=== PATIENT | female | born 1935 | race Caucasian/White ===

== ENCOUNTER 2017-08-29 18:59 | Emergency (ER) | payer MEDICARE ==
[2017-08-29 19:24] VITALS: PULSE 70
[2017-08-29 19:54] VITALS: O2SAT 97
[2017-08-29 19:56] LABS: BASOPHIL % 0.4 % (0.0-0.4); Eosinophil % 3.1 % (0.00-5.0); Granulocytes % 55.3 % (36.0-66.0); Lymphocytes % 30.7 % (24.0-44.0); Mean Cell Volume 92.3 fl (78-100); Mean Corpuscular Hemoglobin 28.9 pg (26-32); Mean Platelet Volume 11.2 fl (6-9.5); Monocytes % 10.5 % (0.0-12.0); Platelet Count 164 K/mm3 (150-450); Red Blood Count 4.29 M/mm3 (4.1-5.4); Red Cell Distribution Width 14.8 % (11.5-14.0); White Blood Count 6.9 K/mm3 (4.0-10.5)
[2017-08-29 19:58] LABS: ADD URINE CULTURE? NO (NO); Bilirubin NEGATIVE (NEGATIVE); Blood NEGATIVE Ery/ul (0-5); COMPLETE URINE MICROSCOPIC? NO; Collection Type CLEAN CATCH; Glucose NEGATIVE (NEGATIVE); Leukocyte Esterase NEGATIVE (NEGATIVE)
[2017-08-29 20:12] LABS: ALBUMIN 3.7 g/dL (3.4-5.0); ANION GAP 12.2 MEQ/L (5-15); BILIRUBIN,TOTAL 0.6 mg/dL (0.2-1.0); Carbon Dioxide 28.5 mEq/L (21-32); Total Protein 6.7 gm/dL (6.4-8.2)
--- NOTE | 2017-08-29 20:25 | ERPHSYRPT ---
- History of Present Illness Time Seen by Provider: 08/29/17 20:23 Historian: patient Exam Limitations: no limitations Patient Subjective Stated Complaint: right side abdominal pain starting today.. states has had urinary frequency and painful urination. states difficulty breathing. her chemicals fermentation operator told her to take a lasix to help. states breathing improved after lasix. Triage Nursing Assessment: alert and oriented ambulate to room per self. no obvious SOB with exertion. denies cough. lungs clear bilateral/ slight edema noted to lower extemities which is normal for her after her valve replacement. + pedal pulses palpable. abdomen soft non tender. bowels moving with no problems. Physician History: right side abdominal pain starting today.. states has had urinary frequency and painful urination. states difficulty breathing. her chemicals fermentation operator told her to take a lasix to help. states breathing improved after lasix. no fever. pain relieved after 15 minutes in ER Timing/Duration: today Activities at Onset: none Quality: cramping Abdominal Pain Onset Location: generalized abdomen Pain Radiation: no radiation Severity of Pain-Max: mild Severity of Pain-Current: none Modifying Factors: Improves With: nothing Allergies/Adverse Reactions: alendronate sodium [From Fosamax] Allergy (Verified 08/29/17 19:59) Sulfa (Sulfonamide Antibiotics) Allergy (Verified 08/29/17 20:00) acetaminophen [From Percocet] Adverse Reaction (Verified 08/29/17 20:00) oxycodone [From Percocet] Adverse Reaction (Verified 08/29/17 20:00) Home Medications: Clonazepam [Klonopin] 0.5 mg PO BID 08/29/17 [History] Dronedarone Hydrochloride 400* [Multaq 400 MG] 400 mg PO BID 08/29/17 [ History] Furosemide 20 mg [Lasix 20 mg] 20 mg PO BID 08/29/17 [History] Levothyroxine Sodium 0.15 mcg PO DAILY 08/29/17 [History] Metoprolol Tartrate 25 mg PO TID 08/29/17 [History] Warfarin Sodium [Coumadin] 1.5 mg PO DAILY 08/29/17 [History] Immunizations Up to Date: Yes - Review of Systems Constitutional: No Fever, No Chills Eyes: No Symptoms Ears, Nose, & Throat: No Symptoms Respiratory: No Cough, No Dyspnea Cardiac: No Chest Pain, No Edema, No Syncope Abdominal/Gastrointestinal: Abdominal Pain, No Nausea, No Vomiting, No Diarrhea Genitourinary Symptoms: No Dysuria Musculoskeletal: No Back Pain, No Neck Pain Skin: No Rash Neurological: No Dizziness, No Focal Weakness, No Sensory Changes Psychological: No Symptoms Endocrine: No Symptoms All Other Systems: Reviewed and Negative - Past Medical History Pertinent Past Medical History: Yes Cardiac History: Arrhythmia Respiratory History: CHF Endocrine Medical History: Thyroid Cancer GI Medical History: Other History: Kidney Cancer Other Medical History: pancreatic cysts - Past Surgical History Past Surgical History: Yes Cardiac: Valve Replacement Genitourinary: Kidney Surgery Musculoskeletal: No Pertinent History - Social History Smoking Status: Never smoker Exposure to second hand smoke: No Drug Use: none Patient Lives Alone: No - Nursing Vital Signs Nursing Vital Signs: Initial Vital Signs Temperature 97.7 F 08/29/17 19:07 Pulse Rate 70 08/29/17 19:07 Respiratory Rate 18 08/29/17 19:07 Blood Pressure 127/92 08/29/17 19:07 O2 Sat by Pulse Oximetry 95 08/29/17 19:07 Pain Scale Pain Intensity 0 - Physical Exam General Appearance: no apparent distress, alert Eye Exam: PERRL/EOMI, eyes nml inspection Ears, Nose, Throat Exam: normal ENT inspection, pharynx normal, moist mucous membranes Neck Exam: normal inspection, non-tender, supple, full range of motion Respiratory Exam: normal breath sounds, lungs clear, No respiratory distress Cardiovascular Exam: regular rate/rhythm, normal heart sounds, murmur Gastrointestinal/Abdomen Exam: soft, No tenderness, No mass Back Exam: normal inspection, normal range of motion, No CVA tenderness, No vertebral tenderness Extremity Exam: normal inspection, normal range of motion, pelvis stable Neurologic Exam: alert, oriented x 3, cooperative, normal mood/affect, nml cerebellar function, sensation nml, No motor deficits Skin Exam: normal color, warm, dry SpO2: 97 Oxygen Delivery: Room Air - Course Nursing assessment & vital signs reviewed: Yes Ordered Tests: Active Orders 24 hr Category Date Time Status EKG-ER Only STAT Care 08/29/17 19:26 Active IV Insertion STAT Care 08/29/17 19:26 Active OBSTR/ACUTE ABDOMEN SERIES Stat Exams 08/29/17 19:26 Taken CBC W DIFF Stat Lab 08/29/17 19:51 Completed CMP Stat Lab 08/29/17 19:51 Completed Lactic Acid Stat Lab 08/29/17 19:50 Completed UA W/RFX UR CULTURE Stat Lab 08/29/17 19:51 Completed Lab/Rad Data: Laboratory Result Diagrams 08/29/17 19:51 08/29/17 19:51 Laboratory Results 08/29/17 08/29/17 08/29/17 Range/Units 19:51 19:51 19:51 WBC 6.9 (4.0-10.5) K/mm3 RBC 4.29 (4.1-5.4) M/mm3 Hgb 12.4 (12.0-16.0) gm/dl Hct 39.6 (35-47) % MCV 92.3 (78-100) fl MCH 28.9 (26-32) pg MCHC 31.3 L (32-36) g/dl RDW 14.8 H (11.5-14.0) % Plt Count 164 (150-450) K/mm3 MPV 11.2 H (6-9.5) fl Gran % 55.3 (36.0-66.0) % Lymphocytes % 30.7 (24.0-44.0) % Monocytes % 10.5 (0.0-12.0) % Eosinophils % 3.1 (0.00-5.0) % Basophils % 0.4 (0.0-0.4) % Basophils # 0.03 (0-0.4) Sodium 142 (136-145) mEq/L Potassium 4.0 (3.5-5.1) mEq/L Chloride 105 (98-107) mEq/L Carbon Dioxide 28.5 (21-32) mEq/L Anion Gap 12.2 (5-15) MEQ/L BUN 26 H (9-20) mg/dL Creatinine 1.36 H (0.55-1.30) mg/dl Estimated GFR 40 ML/MIN Glucose 97 (70-110) MG/DL Lactic Acid (0.4-2.0) Calcium 8.6 (8.5-10.1) mg/dL Total Bilirubin 0.60 (0.2-1.0) mg/dL AST 35 (15-37) U/L ALT 35 (12-78) U/L Alkaline Phosphatase 73 (46-116) U/L Serum Total Protein 6.7 (6.4-8.2) gm/dL Albumin 3.7 (3.4-5.0) g/dL Ur Collection Type CLEAN CATCH Urine Color YELLOW (YELLOW) Urine Appearance CLEAR (CLEAR) Urine pH 5.0 (5-6) Ur Specific [place] 1.010 (1.005-1.025) Urine Protein NEGATIVE (Negative) Urine Ketones NEGATIVE (NEGATIVE) Urine Blood NEGATIVE (0-5) Deniz/ul Urine Nitrite NEGATIVE (NEGATIVE) Urine Bilirubin NEGATIVE (NEGATIVE) Urine Urobilinogen NORMAL (0-1) mg/dL Ur Leukocyte Esterase NEGATIVE (NEGATIVE) Urine Culture Reflexed NO (NO) Urine Glucose NEGATIVE (NEGATIVE) mg/dL Specimen Received [id number] 08/29/17 Range/Units 19:50 WBC (4.0-10.5) K/mm3 RBC (4.1-5.4) M/mm3 Hgb (12.0-16.0) gm/dl Hct (35-47) % MCV (78-100) fl MCH (26-32) pg MCHC (32-36) g/dl RDW (11.5-14.0) % Plt Count (150-450) K/mm3 MPV (6-9.5) fl Gran % (36.0-66.0) % Lymphocytes % (24.0-44.0) % Monocytes % (0.0-12.0) % Eosinophils % (0.00-5.0) % Basophils % (0.0-0.4) % Basophils # (0-0.4) Sodium (136-145) mEq/L Potassium (3.5-5.1) mEq/L Chloride (98-107) mEq/L Carbon Dioxide (21-32) mEq/L Anion Gap (5-15) MEQ/L BUN (9-20) mg/dL Creatinine (0.55-1.30) mg/dl Estimated GFR ML/MIN Glucose (70-110) MG/DL Lactic Acid 1.3 (0.4-2.0) Calcium (8.5-10.1) mg/dL Total Bilirubin (0.2-1.0) mg/dL AST (15-37) U/L ALT (12-78) U/L Alkaline Phosphatase (46-116) U/L Serum Total Protein (6.4-8.2) gm/dL Albumin (3.4-5.0) g/dL Ur Collection Type Urine Color (YELLOW) Urine Appearance (CLEAR) Urine pH (5-6) Ur Specific [place] (1.005-1.025) Urine Protein (Negative) Urine Ketones (NEGATIVE) Urine Blood (0-5) Deniz/ul Urine Nitrite (NEGATIVE) Urine Bilirubin (NEGATIVE) Urine Urobilinogen (0-1) mg/dL Ur Leukocyte Esterase (NEGATIVE) Urine Culture Reflexed (NO) Urine Glucose (NEGATIVE) mg/dL Specimen Received - Progress Progress: improved Counseled pt/family regarding: lab results, diagnosis, need for follow-up, rad results - Departure Time of Disposition: 20:57 Departure Disposition: Home Clinical Impression: Abdominal pain in female Constipation Qualifiers: Constipation type: slow transit constipation Qualified Code(s): K59.01 - Slow transit constipation Condition: Stable Critical Care Time: No Referrals: CASEY SIMMS [Primary Care Provider] - Instructions: Abdominal Pain-Adult, Constipation Additional Instructions: Please follow the instructions given to you. Please take your medication as prescribed if given. If symptoms recur or get worse, come back to the emergency room if you cannot reach your primary care physician, or call your primary care physician for an appointment. Again if your symptoms get worse, come back to the emergency room. Thanks for visiting emergency room, and let us take care of you.
[2017-08-29 21:09] VITALS: BP 138/90
--- NOTE | 2017-08-30 09:31 | XRAY ---
Indication: Right abdominal pain and dyspnea. Comparison: Chest exam July 13, 2008. 2 views of the abdomen nonacute nonobstructed with a few known gallstones as seen on CT abdomen February 29, 2016. Remaining solid organs unremarkable. Osseous structures demonstrates osteopenia, lower lumbar degenerative changes, and old right pelvic bone fractures. Single PA chest remains hyperinflated and clear. Heart is borderline enlarged. New postsurgical changes related to cardiac valvular replacement surgery and new left-sided dual-lead pacemaker. Bony thorax intact with mild osteopenia, degenerative changes, and old right rib fractures. Impression: 1. Known gallstones. Gallbladder ultrasound may yield further information if clinically warranted. 2. Nonacute hyperinflated chest with chronic features.
== END 2017-08-29 21:08 | disposition home or self-care (01) ==
LOC: ED 18:59
DX: K59.01 Slow transit constipation (principal); R10.9 Unspecified abdominal pain; R35.0 Frequency of micturition; R30.0 Dysuria; Z79.899 Other long term (current) drug therapy; Z79.01 Long term (current) use of anticoagulants; I50.9 Heart failure, unspecified; Z95.2 Presence of prosthetic heart valve
CPT/HCPCS: 36000; 36415; 74022; 80053; 81002; 83605; 85025; 93005; 99284

== ENCOUNTER 2020-02-22 19:03 | Emergency (ER) | payer MEDICARE ==
[2020-02-22] MEDS ORDERED: solu-MEDROL 125 MG IM ONE (19:47)
--- NOTE | 2020-02-22 19:47 | ERPHSYRPT ---
- History of Present Illness Time Seen by Provider: 02/22/20 19:30 Source: patient Exam Limitations: no limitations Patient Subjective Stated Complaint: Patient states " I have been coughing for 2 days and it hasnt gotten any better". Patient states " I started running a fever today at 100.3". Patient states " I have periods of SOB also". Triage Nursing Assessment: Patient arrived to ER with assistance from daughter. Patient A/O times 4. Patient answers questions appropriatley. Patient pleasant and cooperative. Lungs clear bilateral A/P throughout. Cap refill < 3 seconds. Patient with no S/S of SOB at this time. No respiratory distress noted. No edema present. No cough noted since admission to ER. Skin turgor fair. + BS times 4 quads. ABD flat, non-distended. No complaints of pain upon palpitation. + pedal pulses in bilateral lower extremities. Patient denies chest pain, N/V. Patient states barbi does have loose stools but nothing abnormal for her, she has had for years. Patient denies pain or discomfort. Physician History: This is an 84-year-old white female who has a 2-day history of cough. She states she felt a little short of breath today and measured a temperature of 100.3 Fahrenheit at home. She has not taken anything for her fever and arrived to the emergency department with a temperature of 98 F and room air oxygenation with her mask in place of 98%. Patient denies abdominal pain she denies chest pain, she denies nausea vomiting diarrhea. Patient denies myalgias and arthralgias. Patient completed a round of doxycycline antibiotics last week for treatment of a urinary tract infection. Timing/Duration: day(s) (2) Cough Quality/Degree: mild Possible Cause: occasional episodes Modifying Factors: Improves With: activity Associated Symptoms: fever, cough, shortness of breath (Mild with coughing and exertion.), No muscle aches, No wheezing Allergies/Adverse Reactions: alendronate sodium [From Fosamax] Allergy (Verified 02/22/20 19:30) Sulfa (Sulfonamide Antibiotics) Allergy (Verified 02/22/20 19:30) oxycodone [From Percocet] Adverse Reaction (Verified 02/22/20 19:30) Home Medications: Furosemide 20 mg [Lasix 20 mg] 20 mg PO DAILY 08/29/17 [History] Levothyroxine Sodium 88 mcg PO DAILY 08/29/17 [History] Metoprolol Tartrate 25 mg PO DAILY 08/29/17 [History] Warfarin Sodium [Coumadin] 3 mg PO DAILY 08/29/17 [History] clonazePAM [Klonopin] 0.5 mg PO BID 08/29/17 [History] Digoxin 0.125 mg Tablet [Lanoxin 0.125MG TABLET] 0.125 mg PO DAILY [History] Potassium Chloride 10 Meq Tab* [Klor Con 10 MEQ] 10 meq PO BID 02/22/20 [ History] Sacubitril/Valsartan [Entresto 24 mg-26 mg Tablet] 24 - 26 mg PO BID 02/22/20 [ History] Hx Tetanus, Diphtheria Vaccination/Date Given: No Hx Influenza Vaccination/Date Given: Yes Hx Pneumococcal Vaccination/Date Given: Yes Immunizations Up to Date: Yes Travel Risk - International Travel Have you traveled outside of the country in past 3 weeks: No Have you or anyone close to you been diagnosed with or: No Do your reside in a community with a known COVID-19 case?: No - Coronavirus Screening Has patient experienced Coronavirus symptoms: Yes Symptoms experienced: respiratory symptoms (i.e.Cought,shortness of breath) Date of fever onset:: 02/22/20 Date of respiratory symptoms onset:: 02/20/20 - Review of Systems Constitutional: Fever Eyes: No Symptoms Ears, Nose, & Throat: No Symptoms Respiratory: Cough, Dyspnea Cardiac: No Symptoms Abdominal/Gastrointestinal: No Symptoms Genitourinary Symptoms: No Symptoms Musculoskeletal: No Symptoms Skin: No Symptoms Neurological: No Symptoms Psychological: No Symptoms Endocrine: No Symptoms Hematologic/Lymphatic: No Symptoms Immunological/Allergic: No Symptoms All Other Systems: Reviewed and Negative - Past Medical History Pertinent Past Medical History: Yes Neurological History: No Pertinent History ENT History: Cataracts, Glaucoma Cardiac History: Arrhythmia Respiratory History: CHF Endocrine Medical History: Thyroid Cancer Musculoskeletal History: Osteoporosis GI Medical History: Other History: Kidney Cancer Psycho-Social History: Depression Female Reproductive Disorders: No Pertinent History Other Medical History: pancreatic cysts - Past Surgical History Past Surgical History: Yes Neuro Surgical History: No Pertinent History Cardiac: Valve Replacement Respiratory: No Pertinent History Gastrointestinal: No Pertinent History Genitourinary: Kidney Surgery Musculoskeletal: No Pertinent History Female Surgical History: Tubal Ligation - Social History Smoking Status: Never smoker Exposure to second hand smoke: No Drug Use: none Patient Lives Alone: No - Female History Hx Last Menstrual Period: POST Hx Now: No - Nursing Vital Signs Nursing Vital Signs: Initial Vital Signs Temperature 98.0 F 02/22/20 19:11 Pulse Rate 101 H 02/22/20 19:11 Respiratory Rate 18 02/22/20 19:11 Blood Pressure 150/95 02/22/20 19:11 O2 Sat by Pulse Oximetry 98 02/22/20 19:11 Pain Scale Pain Intensity 0 - Physical Exam General Appearance: no apparent distress, alert, anxiety Eye Exam: PERRL/EOMI, eyes nml inspection Ears, Nose, Throat Exam: normal ENT inspection, moist mucous membranes Neck Exam: normal inspection, non-tender, supple, full range of motion Respiratory Exam: normal breath sounds, lungs clear, airway intact, No chest tenderness, No respiratory distress Cardiovascular Exam: regular rate/rhythm, normal heart sounds, normal peripheral pulses Gastrointestinal/Abdomen Exam: soft, normal bowel sounds, No tenderness Pelvic Exam: not done Rectal Exam: not done Back Exam: normal inspection, normal range of motion, No CVA tenderness, No vertebral tenderness Extremity Exam: normal inspection, normal range of motion, pelvis stable Neurologic Exam: alert, oriented x 3, cooperative, tin can feeder II-XII nml as tested Skin Exam: normal color, warm, dry Lymphatic Exam: No adenopathy SpO2 Interpretation: normal SpO2: 98 O2 Delivery: Room Air - Course Nursing assessment & vital signs reviewed: Yes Ordered Tests: Active Orders 24 hr Category Date Time Status Pulse Oximetry (ED) STAT Care 02/22/20 19:47 Active CHEST 1 VIEW (PORTABLE) Stat Exams 02/22/20 19:48 Taken Medication Summary Discontinued Medications Generic Name Dose Route Start Last Admin Trade Name Freq PRN Reason Stop Dose Admin Methylprednisolone Sodium Succinate 125 mg 02/22/20 19:47 02/22/20 20:08 Solu-Medrol 125 Mg IM 02/22/20 19:48 125 mg STAT ONE Administration Methylprednisolone Sodium Succinate Confirm 02/22/20 19:58 Solu-Medrol 125 Mg Administered 02/22/20 19:59 Dose 125 mg .ROUTE .[facility] Lab/Rad Data: Laboratory Results 02/22/20 Range/Units Unknown Influenza Type A Ag NEGATIVE (NEGATIVE) Influenza Type B Ag NEGATIVE (NEGATIVE) RSV (PCR) NEGATIVE (Negative) - Progress Progress: re-examined Air Movement: good Progress Note: 02/22/20 20:30 Chest x-ray reveals bilateral lung scarring that is been present on other radiographic studies of the lungs. No obvious infiltrates present. Chronic changes seen. Antibiotics given: No Counseled pt/family regarding: lab results, diagnosis, need for follow-up, rad results - Departure Departure Disposition: Home Clinical Impression: Bronchitis Condition: Stable Critical Care Time: No Referrals: WOLGFANG SALAZAR [Primary Care Provider] - Additional Instructions: Drink plenty of fluids. Take medication as prescribed. Follow-up with your primary care physician for persistent symptoms. Prescriptions: Albuterol 8 gm Mdi Hfa [Ventolin Hfa MDI] 8 gm IH Q4H #1 [email or web address] Prednisone 10 mg [Deltasone 10 mg] 10 mg PO BID #6 tablet
[2020-02-22] MEDS ORDERED: solu-MEDROL 125 MG ONE (19:58)
[2020-02-22 20:45] LABS: INFLUENZA A NEGATIVE (NEGATIVE); INFLUENZA B NEGATIVE (NEGATIVE); RESPIRATORY SYNCTIAL VIRUS NEGATIVE (Negative)
[2020-02-22 20:58] VITALS: BP 157/89; PULSE 105; O2SAT 97
--- NOTE | 2020-02-23 08:18 | XRAY ---
Indication: Fever and cough. Comparison: August 29, 2017. Portable chest remains hyperinflated with chronic costophrenic angle blunting bilaterally. No focal infiltrate, consolidation, or large effusion. Heart remains borderline enlarged again with valvular replacement surgery and left dual-lead pacemaker. Bony thorax intact again with osteopenia, degenerative changes, and old right rib fractures. Impression: Continued nonacute chest with chronic features.
== END 2020-02-22 21:10 | disposition home or self-care (01) ==
LOC: ED 19:03
DX: J40 Bronchitis, not specified as acute or chronic (principal); Z85.528 Personal history of other malignant neoplasm of kidney; I50.9 Heart failure, unspecified; Z79.01 Long term (current) use of anticoagulants; Z79.899 Other long term (current) drug therapy; Z85.850 Personal history of malignant neoplasm of thyroid
CPT/HCPCS: 71045; 87631; 94760; 96372; 99284; J2930

== ENCOUNTER 2020-12-25 13:39 | Emergency (ER) | payer MEDICARE ==
[2020-12-25 13:53] VITALS: BP 141/86; PULSE 75; O2SAT 95
--- NOTE | 2020-12-25 14:10 | ERPHSYRPT ---
- History of Present Illness Source: patient Exam Limitations: other (Poor hio) Patient Subjective Stated Complaint: Pt c/o of hemanth big toe nail fungus pain Triage Nursing Assessment: Pt was brought to the ER by a family member, maty wnl, rates toes pain as 7-8/10, reports having toe fungus for many years and it would come and go, reports going to many doctors, pulses normal, doesn't appear to be in any distress Physician History: 85 yo wf w tinea pedis x many years. Pt states that she has seen her PCP/tire spotter etc. Feet are pruritic and burn. Timing/Duration: other (Mnay years) Location: feet (B feet) Possible Causes: no cause identified Allergies/Adverse Reactions: alendronate sodium [From Fosamax] Allergy (Verified 12/25/20 13:53) Sulfa (Sulfonamide Antibiotics) Allergy (Verified 12/25/20 13:53) oxycodone [From Percocet] Adverse Reaction (Verified 12/25/20 13:53) Home Medications: Furosemide 20 mg [Lasix 20 mg] 20 mg PO DAILY 08/29/17 [History] Levothyroxine Sodium 88 mcg PO DAILY 08/29/17 [History] Metoprolol Tartrate 25 mg PO DAILY 08/29/17 [History] Warfarin Sodium [Coumadin] 3 mg PO DAILY 08/29/17 [History] clonazePAM [Klonopin] 0.5 mg PO BID 08/29/17 [History] Digoxin 0.125 mg Tablet [Lanoxin 0.125MG TABLET] 0.125 mg PO DAILY 02/22/20 [History] Potassium Chloride 10 Meq Tab* [Klor Con 10 MEQ] 10 meq PO BID 02/22/20 [History] Sacubitril/Valsartan [Entresto 24 mg-26 mg Tablet] 24 - 26 mg PO BID 02/22/20 [History] Hx Tetanus, Diphtheria Vaccination/Date Given: No Hx Influenza Vaccination/Date Given: Yes Hx Pneumococcal Vaccination/Date Given: Yes Travel Risk - International Travel Have you traveled outside of the country in past 3 weeks: No - Coronavirus Screening Are you exhibiting any of the following symptoms?: No Close contact with a COVID-19 positive Pt in past 14-21 Days: No - Review of Systems Constitutional: No Symptoms Eyes: No Symptoms Ears, Nose, & Throat: No Symptoms Respiratory: No Symptoms Cardiac: No Symptoms Abdominal/Gastrointestinal: No Symptoms Genitourinary Symptoms: No Symptoms Musculoskeletal: No Symptoms Neurological: No Symptoms Psychological: No Symptoms Endocrine: No Symptoms Hematologic/Lymphatic: No Symptoms Immunological/Allergic: No Symptoms - Past Medical History Pertinent Past Medical History: Yes Neurological History: No Pertinent History ENT History: Cataracts, Glaucoma Cardiac History: Arrhythmia Respiratory History: CHF Endocrine Medical History: Thyroid Cancer Musculoskeletal History: Osteoporosis GI Medical History: Other History: Kidney Cancer Psycho-Social History: Depression Female Reproductive Disorders: No Pertinent History Other Medical History: pancreatic cysts - Past Surgical History Past Surgical History: Yes Neuro Surgical History: No Pertinent History Cardiac: Valve Replacement Respiratory: No Pertinent History Gastrointestinal: No Pertinent History Genitourinary: Kidney Surgery Musculoskeletal: No Pertinent History Female Surgical History: Tubal Ligation - Social History Smoking Status: Never smoker Exposure to second hand smoke: No Drug Use: none Patient Lives Alone: No Significant Family History: no pertinent family hx - Female History Hx Now: No - Nursing Vital Signs Nursing Vital Signs: Initial Vital Signs Temperature 99.0 F 12/25/20 13:46 Pulse Rate 75 12/25/20 13:46 Blood Pressure 141/86 12/25/20 13:46 O2 Sat by Pulse Oximetry 95 12/25/20 13:46 Pain Scale Pain Intensity 7 - Physical Exam General Appearance: no apparent distress Eye Exam: PERRL/EOMI, eyes nml inspection Ears, Nose, Throat Exam: normal ENT inspection, TMs normal, moist mucous membranes Neck Exam: normal inspection, non-tender, supple, full range of motion Respiratory Exam: normal breath sounds, lungs clear, airway intact, No respiratory distress Cardiovascular Exam: regular rate/rhythm, normal heart sounds, normal peripheral pulses, No murmur Gastrointestinal/Abdomen Exam: soft, normal bowel sounds, No tenderness Back Exam: normal inspection Extremity Exam: other (B feet w tinea unguium of many toes and tinea pedis) Neurologic Exam: alert, oriented x 3, cooperative, manager chemical II-XII nml as tested, normal mood/affect, nml cerebellar function, nml station & gait, sensation nml, No motor deficits, No sensory deficit Skin Exam: other (See extremity) SpO2 Interpretation: normal SpO2: 95 O2 Delivery: Room Air - Course Nursing assessment & vital signs reviewed: Yes - Progress Progress: unchanged Progress Note: 12/25/20 14:14 Since pt has seen her PCP and tire spotter in the past, will refer to Dr. Purvis. Pt instructed to call in AM. Counseled pt/family regarding: need for follow-up - Departure Departure Disposition: Home Clinical Impression: Tinea pedis, Tinea unguium Condition: Stable Critical Care Time: No Referrals: WOLFGANG SALAZAR [Primary Care Provider] - ELLEN CARVAJAL DPM [ACTIVE STAFF] - Instructions: Athlete's Foot (DC) Additional Instructions: Call Dr. Purvis in AM [phone]
== END 2020-12-25 14:36 | disposition home or self-care (01) ==
LOC: ED 13:39
DX: B35.3 Tinea pedis (principal); B35.1 Tinea unguium; M79.675 Pain in left toe(s); M79.674 Pain in right toe(s); Z79.01 Long term (current) use of anticoagulants
CPT/HCPCS: 99283

== ENCOUNTER 2021-03-23 23:56 | Emergency (ER) | payer MEDICARE ==
--- NOTE | 2021-03-24 00:39 | ERPHSYRPT ---
- History of Present Illness Time Seen by Provider: 03/24/21 00:05 Source: patient, EMS Exam Limitations: no limitations Patient Subjective Stated Complaint: pt states she fell approx 2-3 weeks ago and had back pain after. states when trying to get up tonight, she had significant increase in pain. Triage Nursing Assessment: pt alert and oriented, answers questions approp. pt arrive per ambulance and transfers to stretcher with assist of 2. pt states great increase in pain with movement. skin warm and dry. Physician History: This is an 85-year-old white female who fell approximately 2 to 3 weeks ago and had back pain for period of time that was brief. It nearly completely resolved on its own. However, she never did get it evaluated. Tonight, the patient laid flat and felt pain in the same area that she hurt 2 to 3 weeks ago. She has no abdominal pain. She has no chest pain. Patient is on Coumadin. She has a "leaky valve" in her heart. Timing/Duration: week(s) (2-3) Method of Injury: fall Quality: sharp, stabbing Back Pain Location: T-spine Severity of Pain-Max: moderate Severity of Pain-Current: moderate Modifying Factors: Improves With: movement Associated Symptoms: No urinary incontinence, No problems urinating, No numbness in legs/feet, No sensory/motor loss, No tingling in legs/feet Previous symptoms: same symptoms as today, no recent treatment Allergies/Adverse Reactions: alendronate sodium [From Fosamax] Allergy (Verified 03/24/21 00:15) Sulfa (Sulfonamide Antibiotics) Allergy (Verified 03/24/21 00:15) oxycodone [From Percocet] Adverse Reaction (Verified 03/24/21 00:15) Home Medications: Furosemide 20 mg [Lasix 20 mg] 20 mg PO DAILY 08/29/17 [History] Levothyroxine Sodium 88 mcg PO DAILY 08/29/17 [History] Metoprolol Tartrate 25 mg PO DAILY 08/29/17 [History] Warfarin Sodium [Coumadin] 3 mg PO DAILY 08/29/17 [History] clonazePAM [Klonopin] 0.5 mg PO BID 08/29/17 [History] Digoxin 0.125 mg Tablet [Lanoxin 0.125MG TABLET] 0.125 mg PO DAILY 02/22/20 [History] Potassium Chloride 10 Meq Tab* [Klor Con 10 MEQ] 10 meq PO BID 02/22/20 [History] Sacubitril/Valsartan [Entresto 24 mg-26 mg Tablet] 24 - 26 mg PO BID 02/22/20 [History] Hx Tetanus, Diphtheria Vaccination/Date Given: Yes Hx Influenza Vaccination/Date Given: Yes Hx Pneumococcal Vaccination/Date Given: Yes Immunizations Up to Date: Yes Travel Risk - International Travel Have you traveled outside of the country in past 3 weeks: No - Coronavirus Screening Are you exhibiting any of the following symptoms?: No Close contact with a COVID-19 positive Pt in past 14-21 Days: No - Vaccine Status Have you recieved a Covid-19 vaccination: Yes Child Care Specialist: Moderna - Vaccination Dates Date of 2cond Vaccination (if applicable): JANUARY 2021 - Review of Systems Constitutional: No Symptoms Eyes: No Symptoms Ears, Nose, & Throat: No Symptoms Respiratory: No Symptoms Cardiac: No Symptoms Abdominal/Gastrointestinal: No Symptoms Genitourinary Symptoms: No Symptoms Musculoskeletal: Back Pain Skin: No Symptoms Neurological: No Symptoms Psychological: No Symptoms Endocrine: No Symptoms Hematologic/Lymphatic: No Symptoms Immunological/Allergic: No Symptoms All Other Systems: Reviewed and Negative - Past Medical History Pertinent Past Medical History: Yes Neurological History: No Pertinent History ENT History: Cataracts, Glaucoma Cardiac History: Arrhythmia Respiratory History: CHF Endocrine Medical History: Thyroid Cancer Musculoskeletal History: Osteoporosis GI Medical History: Other History: Kidney Cancer Psycho-Social History: Depression Female Reproductive Disorders: No Pertinent History Other Medical History: pancreatic cysts - Past Surgical History Past Surgical History: Yes Neuro Surgical History: No Pertinent History Cardiac: Valve Replacement Respiratory: No Pertinent History Gastrointestinal: No Pertinent History Genitourinary: Kidney Surgery Musculoskeletal: No Pertinent History Female Surgical History: Tubal Ligation - Social History Smoking Status: Never smoker Exposure to second hand smoke: No Drug Use: none Patient Lives Alone: No Significant Family History: no pertinent family hx - Nursing Vital Signs Nursing Vital Signs: Initial Vital Signs Temperature 98.1 F 03/24/21 00:02 Pulse Rate 101 H 03/24/21 00:02 Respiratory Rate 16 03/24/21 00:02 Blood Pressure 123/95 03/24/21 00:02 O2 Sat by Pulse Oximetry 96 03/24/21 00:02 Pain Scale Pain Intensity [Lower Back] 3 Pain Intensity 3 - Physical Exam General Appearance: no apparent distress, alert, anxiety Eye Exam: PERRL/EOMI, eyes nml inspection Ears, Nose, Throat Exam: normal ENT inspection, moist mucous membranes Neck Exam: normal inspection, non-tender, supple, full range of motion Respiratory Exam: normal breath sounds, lungs clear, airway intact, No chest tenderness, No respiratory distress Cardiovascular Exam: regular rate/rhythm, normal heart sounds, normal peripheral pulses Gastrointestinal Exam: soft, normal bowel sounds, No tenderness, No guarding, No pulsatile mass, No rebound, No hernia, No organomegaly, No splenomegaly Pelvic Exam: not done Rectal Exam: not done Back Exam: normal inspection, vertebral tenderness (At the level of the mid thoracic spine), decreased range of motion, No CVA tenderness Extremity Exam: normal inspection, normal range of motion, pelvis stable Neurologic Exam: alert, oriented x 3, cooperative, director of orthopedics II-XII nml as tested, normal mood/affect, nml cerebellar function, nml station & gait, sensation nml Skin Exam: normal color, warm, dry Lymphatic Exam: No adenopathy SpO2 Interpretation: normal SpO2: 96 O2 Delivery: Room Air - Course Nursing assessment & vital signs reviewed: Yes Ordered Tests: Active Orders 24 hr Category Date Time Status THORACIC SPINE W/O CONTRAST [CT] Stat Exams 03/24/21 00:16 Taken Medication Summary Discontinued Medications Generic Name Dose Route Start Last Admin Trade Name Freq PRN Reason Stop Dose Admin Lorazepam 0.5 mg 03/24/21 01:39 03/24/21 02:08 Ativan 2 Mg/1 Ml Vial IM 03/24/21 01:40 0.5 mg STAT ONE Administration Lorazepam Confirm 03/24/21 01:53 Ativan 2 Mg/1 Ml Vial Administered 03/24/21 01:54 Dose 2 mg .ROUTE .STK-MED ONE Morphine Sulfate 2 mg 03/24/21 01:39 03/24/21 02:09 Morphine Sulfate 2 Mg Inj IM 03/24/21 01:40 2 mg STAT ONE Administration Morphine Sulfate Confirm 03/24/21 01:53 Morphine Sulfate 2 Mg Inj Administered 03/24/21 01:54 Dose 2 mg .ROUTE .STK-MED ONE Ondansetron HCl 4 mg 03/24/21 01:40 03/24/21 02:10 Zofran Odt 4 Mg PO 03/24/21 01:41 4 mg STAT ONE Administration Ondansetron HCl Confirm 03/24/21 01:53 Zofran Odt 4 Mg Administered 03/24/21 01:54 Dose 4 mg .ROUTE .STK-MED ONE - Progress Progress: improved, pain not gone completely, re-examined Progress Note: 03/24/21 01:40 CAT scan of the thoracic spine shows multiple old compression fractures of the thoracic spine. Counseled pt/family regarding: diagnosis, need for follow-up, rad results - Departure Departure Disposition: Home Clinical Impression: Compression fx, thoracic spine Condition: Stable Critical Care Time: No Referrals: WOLFGANG SALAZAR [Primary Care Provider] - Additional Instructions: No excessive activity. May sit and stand and walk as tolerated. Follow-up with your primary care doctor on Friday, March 26, 2021 for further management of your chronic back pain. Increase your Klonopin to 3 times a day for the next 48 hours then decrease back to twice a day as prescribed. Prescriptions: Hydrocodone/APAP 5/325 [[place] 5/325 mg] 1 each PO Q8H PRN PRN #6 tablet MDD 3 PRN Reason: Pain Prednisone 10 mg [Deltasone 10 mg] 10 mg PO TID #12 tablet
[2021-03-24] MEDS ORDERED: MORPHINE SULFATE 2 MG INJ IM ONE (01:39)
[2021-03-24] MEDS ORDERED: Ativan 2 MG/1 ML VIAL IM ONE (01:39)
[2021-03-24] MEDS ORDERED: ZOFRAN ODT 4 MG PO ONE (01:40)
[2021-03-24] MEDS ORDERED: MORPHINE SULFATE 2 MG INJ ONE (01:53)
[2021-03-24] MEDS ORDERED: ZOFRAN ODT 4 MG ONE (01:53)
[2021-03-24] MEDS ORDERED: Ativan 2 MG/1 ML VIAL ONE (01:53)
[2021-03-24] MEDS ORDERED: NORCO 5/325 MG PO ONE (02:31)
[2021-03-24] MEDS ORDERED: NORCO 5/325 MG ONE (04:36)
[2021-03-24 05:14] VITALS: BP 108/62; PULSE 78; O2SAT 94
--- NOTE | 2021-03-24 08:21 | XRAY ---
Indication: Back pain. No known injury. Multiple contiguous axial images obtained through the thoracic spine. Sagittal and coronal reformatted images obtained. Comparison: None Osseous structures demineralized consistent with patient's age. No large disc herniation or spinal canal stenosis. Minimal/mild multilevel degenerative endplate spurring. Remote appearing T8 vertebral body compression fracture with complete collapse. Sagittal and coronal reformatted images demonstrates accentuated thoracic kyphosis. No acute fracture, subluxation, or suspicious bony lesions. Visualized soft tissues demonstrates cardiomegaly with aortic valve stent, left dual-lead pacemaker, bibasilar discoid atelectasis/scarring, small gallstones, left renal cortical thinning/scarring with calcifications, 1.1 cm right upper renal cyst, and moderate scattered vascular calcifications. Impression: 1. Osteopenia, multilevel degenerative spondylosis, and remote T8 compression fracture. 2. Incidental soft tissue findings detailed above. Comment: Preliminary interpretation was made by [facility]. No critical discrepancy.
== END 2021-03-24 05:10 | disposition home or self-care (01) ==
LOC: ED 23:56
DX: M48.54XA Collapsed vertebra, not elsewhere classified, thoracic region, initial encounter for fracture (principal); W19.XXXS Unspecified fall, sequela
CPT/HCPCS: 72128; 96372; 99284; J2060; J2270; Q0162; A9270-GY

== ENCOUNTER 2021-03-28 06:41 | Emergency (ER) | payer MEDICARE ==
[2021-03-28] MEDS ORDERED: MORPHINE SULFATE 4 MG INJ ONE (07:22)
[2021-03-28] MEDS ORDERED: DECADRON 10MG INJ. ONE (07:22)
[2021-03-28] MEDS: MORPHINE SULFATE 4 MG INJ IM ONE (07:24)
[2021-03-28] MEDS: DECADRON 10MG INJ. IM ONE (07:24)
--- NOTE | 2021-03-28 07:30 | ERPHSYRPT ---
- History of Present Illness Time Seen by Provider: 03/28/21 07:00 Source: patient Exam Limitations: no limitations Patient Subjective Stated Complaint: pt states "I got up to use the bathroom and was is severe pain." Triage Nursing Assessment: pt came into the er via ambulance; pt is axo x3; c/o pain to back; pt had a recent fall 3 weeks ago; pt states that she has a compression fracture to her back; pt states that she is unable to sit or move; pt states that she slept all night and tried to get up and the pain was severe; pt has tenderness to back; pt has limited ROM; pt states 4/10 pain to back; hypertension; hx of afib Physician History: Patient is a 85-year-old female presents to emergency department for evaluation of thoracic spine pain. Patient was in our ED 4 days ago for the same. Patient states she was at home Timing/Duration: today Method of Injury: other (There is no injury. Patient has a history of osteoporosis patient's pre-existing spine fracture occurred spontaneously.) Back Pain Location: T-spine (No radiation) Severity of Pain-Max: moderate Severity of Pain-Current: mild Modifying Factors: Improves With: movement Associated Symptoms: No fever, No chills, No urinary incontinence, No loss of bowel control, No constipation, No nausea, No vomiting, No problems urinating, No light-headedness, No dizziness, No weakness, No sensory/motor loss Previous symptoms: same symptoms as today Allergies/Adverse Reactions: alendronate sodium [From Fosamax] Allergy (Verified 03/28/21 07:01) Sulfa (Sulfonamide Antibiotics) Allergy (Verified 03/28/21 07:01) oxycodone [From Percocet] Adverse Reaction (Verified 03/28/21 07:01) Home Medications: Furosemide 20 mg [Lasix 20 mg] 20 mg PO DAILY 08/29/17 [History] Levothyroxine Sodium 88 mcg PO DAILY 08/29/17 [History] Metoprolol Tartrate 25 mg PO DAILY 08/29/17 [History] Warfarin Sodium [Coumadin] 3 mg PO DAILY 08/29/17 [History] clonazePAM [Klonopin] 0.5 mg PO BID 08/29/17 [History] Digoxin 0.125 mg Tablet [Lanoxin 0.125MG TABLET] 0.125 mg PO DAILY 02/22/20 [History] Potassium Chloride 10 Meq Tab* [Klor Con 10 MEQ] 10 meq PO BID 02/22/20 [History] Sacubitril/Valsartan [Entresto 24 mg-26 mg Tablet] 24 - 26 mg PO BID 02/22/20 [History] Hx Tetanus, Diphtheria Vaccination/Date Given: Yes Hx Influenza Vaccination/Date Given: Yes Hx Pneumococcal Vaccination/Date Given: Yes Travel Risk - International Travel Have you traveled outside of the country in past 3 weeks: No - Coronavirus Screening Are you exhibiting any of the following symptoms?: No Close contact with a COVID-19 positive Pt in past 14-21 Days: No - Vaccine Status Have you recieved a Covid-19 vaccination: Yes Flower Cutter: Moderna - Vaccination Dates Date of 2cond Vaccination (if applicable): JANUARY 2021 - Review of Systems Constitutional: No Symptoms, No Fever, No Chills Eyes: No Symptoms Ears, Nose, & Throat: No Symptoms Respiratory: No Symptoms, No Cough, No Dyspnea Cardiac: No Symptoms, No Chest Pain, No Edema, No Syncope Abdominal/Gastrointestinal: No Symptoms, No Abdominal Pain, No Nausea, No Vomiting, No Diarrhea Genitourinary Symptoms: No Symptoms, No Dysuria Musculoskeletal: No Symptoms, No Back Pain, No Neck Pain Skin: No Symptoms, No Rash Neurological: No Symptoms, No Dizziness, No Focal Weakness, No Sensory Changes Psychological: No Symptoms Endocrine: No Symptoms Hematologic/Lymphatic: No Symptoms Immunological/Allergic: No Symptoms All Other Systems: Reviewed and Negative - Past Medical History Pertinent Past Medical History: Yes Neurological History: No Pertinent History ENT History: Cataracts, Glaucoma Cardiac History: Arrhythmia, Congestive Heart Failure Respiratory History: CHF Endocrine Medical History: Thyroid Cancer Musculoskeletal History: Osteoporosis GI Medical History: Other History: Kidney Cancer Psycho-Social History: Depression Female Reproductive Disorders: No Pertinent History Other Medical History: pancreatic cysts - Past Surgical History Past Surgical History: Yes Neuro Surgical History: No Pertinent History Cardiac: Valve Replacement Respiratory: No Pertinent History Gastrointestinal: No Pertinent History Genitourinary: Kidney Surgery Musculoskeletal: No Pertinent History Female Surgical History: Tubal Ligation - Social History Smoking Status: Never smoker Exposure to second hand smoke: No Drug Use: none Patient Lives Alone: No Significant Family History: no pertinent family hx - Female History Hx Now: No - Nursing Vital Signs Nursing Vital Signs: Initial Vital Signs Temperature 95.6 F 03/28/21 06:44 Pulse Rate 90 03/28/21 06:44 Respiratory Rate 16 03/28/21 06:44 Blood Pressure 178/125 03/28/21 06:44 O2 Sat by Pulse Oximetry 95 03/28/21 06:44 Pain Scale Pain Intensity [Back] 4 Pain Intensity 3 - Physical Exam General Appearance: no apparent distress, alert Eye Exam: PERRL/EOMI, eyes nml inspection Neck Exam: normal inspection, non-tender, supple, full range of motion, No meningismus, No midline tenderness Respiratory Exam: normal breath sounds, lungs clear, No respiratory distress Cardiovascular Exam: regular rate/rhythm, normal heart sounds, normal peripheral pulses, capillary refill <2 sec Gastrointestinal Exam: soft, No tenderness, No mass Back Exam: other (Tenderness to palpation at thoracic spine at the level of T7-T8-T9. Overlying soft tissue intact. 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 II-XII nml as tested, normal mood/affect, sensation nml, No motor deficits Skin Exam: normal color, warm, dry, No rash SpO2 Interpretation: normal SpO2: 95 O2 Delivery: Room Air - Course Nursing assessment & vital signs reviewed: Yes EKG Interpreted by Me: RATE Ordered Tests: Active Orders 24 hr Category Date Time Status EKG-ER Only STAT Care 03/28/21 07:22 Active IV Insertion STAT Care 03/28/21 09:44 Active Pulse Oximetry (ED) STAT Care 03/28/21 09:44 Active THORACIC SPINE W/O CONTRAST [CT] Stat Exams 03/28/21 07:16 Completed CBC W DIFF Stat Lab 03/28/21 10:10 Completed CMP Stat Lab 03/28/21 10:10 Completed CULTURE,URINE Stat Lab 03/28/21 10:07 Received MAGNESIUM Stat Lab 03/28/21 10:10 Completed PROTIME WITH INR Stat Lab 03/28/21 10:10 Completed PTT Stat Lab 03/28/21 10:10 Completed TROPONIN Q3H Lab 03/28/21 10:10 Completed TROPONIN Q3H Lab 03/28/21 12:19 Completed TROPONIN Q3H Lab 03/28/21 15:45 Ordered TROPONIN Q3H Lab 03/28/21 18:45 Ordered TROPONIN Q3H Lab 03/28/21 21:45 Ordered UA W/RFX UR CULTURE Stat Lab 03/28/21 10:07 Completed Medication Summary Generic Name Dose Route Start Last Admin Trade Name Freq PRN Reason Stop Dose Admin Ceftriaxone Sodium/Dextrose 1 g in 50 mls @ 100 mls/hr 03/29/21 10:00 03/28/21 11:49 Rocephin 1 Gm-D5w 50 Ml Bag IV 04/01/21 09:59 Infused Q24H10 SUMIT Infusion Discontinued Medications Generic Name Dose Route Start Last Admin Trade Name Freq PRN Reason Stop Dose Admin Dexamethasone Sodium Phosphate 6 mg 03/28/21 07:17 03/28/21 07:24 Decadron 10mg Inj. IM 03/28/21 07:18 6 mg STAT ONE Administration Dexamethasone Sodium Phosphate Confirm 03/28/21 07:22 Decadron 10mg Inj. Administered 03/28/21 07:23 Dose 10 mg .ROUTE .STK-MED ONE Ceftriaxone Sodium/Dextrose Confirm 03/28/21 11:07 Rocephin 1 Gm-D5w 50 Ml Bag Administered 03/28/21 11:08 Dose 1 g in 50 mls @ ud IV .STK-MED ONE Morphine Sulfate 4 mg 03/28/21 07:18 03/28/21 07:24 Morphine Sulfate 4 Mg Inj IM 03/28/21 07:19 4 mg STAT ONE Administration Morphine Sulfate Confirm 03/28/21 07:22 Morphine Sulfate 4 Mg Inj Administered 03/28/21 07:23 Dose 4 mg .ROUTE .STK-MED ONE Nitroglycerin 1 gm 03/28/21 11:06 03/28/21 11:11 Nitro-Bid 2% Ud Packets TOP 03/28/21 11:07 1 gm STAT ONE Administration Nitroglycerin Confirm 03/28/21 11:11 Nitro-Bid 2% Ud Packets Administered 03/28/21 11:12 Dose 1 gm .ROUTE .STK-MED ONE Lab/Rad Data: Laboratory Result Diagrams 03/28/21 10:10 03/28/21 10:10 Laboratory Results 03/28/21 03/28/21 03/28/21 Range/Units 12:19 10:10 10:10 WBC (4.0-10.5) K/mm3 RBC (4.1-5.4) M/mm3 Hgb (12.0-16.0) gm/dl Hct (35-47) % MCV (78-100) fl MCH (26-32) pg MCHC (32-36) g/dl RDW (11.5-14.0) % Plt Count (150-450) K/mm3 MPV (7.5-11.0) fl Gran % (36.0-66.0) % Eos # (Auto) (0-0.5) Absolute Lymphs (auto) (1.0-4.6) Absolute Monos (auto) (0.0-1.3) Lymphocytes % (24.0-44.0) % Monocytes % (0.0-12.0) % Eosinophils % (0.00-5.0) % Basophils % (0.0-0.4) % Absolute Granulocytes (1.4-6.9) Basophils # (0-0.4) PT (9.95-12.35) SECONDS INR (0.8-3.0) APTT (25.3-37.0) SECONDS Sodium (137-145) mmol/L Potassium (3.5-5.1) mmol/L Chloride (98-107) mmol/L Carbon Dioxide (22-30) mmol/L Anion Gap (5-15) MEQ/L BUN (7-17) mg/dL Creatinine (0.52-1.04) mg/dL Estimated GFR ML/MIN Glucose (74-106) mg/dL Calcium (8.4-10.2) mg/dL Magnesium (1.6-2.3) mg/dL Total Bilirubin (0.2-1.3) mg/dL AST (14-36) U/L ALT (0-35) U/L Alkaline Phosphatase (38-126) U/L Troponin I 0.040 H* 0.044 H* (0.000-0.034) ng/mL Serum Total Protein (6.3-8.2) g/dL Albumin (3.5-5.0) g/dL Urine Color (YELLOW) Urine Appearance (CLEAR) Urine pH (5-6) Ur Specific [place] (1.005-1.025) Urine Protein (Negative) Urine Ketones (NEGATIVE) Urine Blood (0-5) Deniz/ul Urine Nitrite (NEGATIVE) Urine Bilirubin (NEGATIVE) Urine Urobilinogen (0-1) mg/dL Ur Leukocyte Esterase (NEGATIVE) Urine WBC (Auto) (0-5) /HPF Urine RBC (Auto) (0-2) /HPF U Epithel Cells (Auto) (FEW) /HPF Urine Bacteria (Auto) (NEGATIVE) /HPF Urine Mucus (Auto) (NEGATIVE) /HPF Urine Culture Reflexed (NO) Urine Glucose (NEGATIVE) mg/dL Digoxin 1.2 (0.8-1.9) ng/mL Slides for Path Review 03/28/21 03/28/21 03/28/21 Range/Units 10:10 10:10 10:10 WBC 10.4 (4.0-10.5) K/mm3 RBC 5.07 (4.1-5.4) M/mm3 Hgb 14.9 (12.0-16.0) gm/dl Hct 47.7 H (35-47) % MCV 94.1 (78-100) fl MCH 29.4 (26-32) pg MCHC 31.2 L (32-36) g/dl RDW 14.9 H (11.5-14.0) % Plt Count 207 (150-450) K/mm3 MPV 11.8 H (7.5-11.0) fl Gran % 93.2 H (36.0-66.0) % Eos # (Auto) 0.01 (0-0.5) Absolute Lymphs (auto) 0.43 L (1.0-4.6) Absolute Monos (auto) 0.26 (0.0-1.3) Lymphocytes % 4.1 L (24.0-44.0) % Monocytes % 2.5 (0.0-12.0) % Eosinophils % 0.1 (0.00-5.0) % Basophils % 0.1 (0.0-0.4) % Absolute Granulocytes 9.72 H (1.4-6.9) Basophils # 0.01 (0-0.4) PT 40.5 H (9.95-12.35) SECONDS INR 3.54 H (0.8-3.0) APTT 45.6 H (25.3-37.0) SECONDS Sodium 138 (137-145) mmol/L Potassium 4.9 (3.5-5.1) mmol/L Chloride 101 (98-107) mmol/L Carbon Dioxide 29 (22-30) mmol/L Anion Gap 13.4 (5-15) MEQ/L BUN 43 H (7-17) mg/dL Creatinine 1.25 H (0.52-1.04) mg/dL Estimated GFR 43.3 ML/MIN Glucose 109 H (74-106) mg/dL Calcium 9.4 (8.4-10.2) mg/dL Magnesium 2.5 H (1.6-2.3) mg/dL Total Bilirubin 0.60 (0.2-1.3) mg/dL AST 26 (14-36) U/L ALT 13 (0-35) U/L Alkaline Phosphatase 81 (38-126) U/L Troponin I (0.000-0.034) ng/mL Serum Total Protein 7.1 (6.3-8.2) g/dL Albumin 4.2 (3.5-5.0) g/dL Urine Color (YELLOW) Urine Appearance (CLEAR) Urine pH (5-6) Ur Specific [place] (1.005-1.025) Urine Protein (Negative) Urine Ketones (NEGATIVE) Urine Blood (0-5) Deniz/ul Urine Nitrite (NEGATIVE) Urine Bilirubin (NEGATIVE) Urine Urobilinogen (0-1) mg/dL Ur Leukocyte Esterase (NEGATIVE) Urine WBC (Auto) (0-5) /HPF Urine RBC (Auto) (0-2) /HPF U Epithel Cells (Auto) (FEW) /HPF Urine Bacteria (Auto) (NEGATIVE) /HPF Urine Mucus (Auto) (NEGATIVE) /HPF Urine Culture Reflexed (NO) Urine Glucose (NEGATIVE) mg/dL Digoxin (0.8-1.9) ng/mL Slides for Path Review YES 03/28/21 Range/Units 10:07 WBC (4.0-10.5) K/mm3 RBC (4.1-5.4) M/mm3 Hgb (12.0-16.0) gm/dl Hct (35-47) % MCV (78-100) fl MCH (26-32) pg MCHC (32-36) g/dl RDW (11.5-14.0) % Plt Count (150-450) K/mm3 MPV (7.5-11.0) fl Gran % (36.0-66.0) % Eos # (Auto) (0-0.5) Absolute Lymphs (auto) (1.0-4.6) Absolute Monos (auto) (0.0-1.3) Lymphocytes % (24.0-44.0) % Monocytes % (0.0-12.0) % Eosinophils % (0.00-5.0) % Basophils % (0.0-0.4) % Absolute Granulocytes (1.4-6.9) Basophils # (0-0.4) PT (9.95-12.35) SECONDS INR (0.8-3.0) APTT (25.3-37.0) SECONDS Sodium (137-145) mmol/L Potassium (3.5-5.1) mmol/L Chloride (98-107) mmol/L Carbon Dioxide (22-30) mmol/L Anion Gap (5-15) MEQ/L BUN (7-17) mg/dL Creatinine (0.52-1.04) mg/dL Estimated GFR ML/MIN Glucose (74-106) mg/dL Calcium (8.4-10.2) mg/dL Magnesium (1.6-2.3) mg/dL Total Bilirubin (0.2-1.3) mg/dL AST (14-36) U/L ALT (0-35) U/L Alkaline Phosphatase (38-126) U/L Troponin I (0.000-0.034) ng/mL Serum Total Protein (6.3-8.2) g/dL Albumin (3.5-5.0) g/dL Urine Color YELLOW (YELLOW) Urine Appearance CLEAR (CLEAR) Urine pH 5.0 (5-6) Ur Specific [place] 1.018 (1.005-1.025) Urine Protein NEGATIVE (Negative) Urine Ketones SMALL (NEGATIVE) Urine Blood NEGATIVE (0-5) Deniz/ul Urine Nitrite POSITIVE (NEGATIVE) Urine Bilirubin NEGATIVE (NEGATIVE) Urine Urobilinogen NEGATIVE (0-1) mg/dL Ur Leukocyte Esterase SMALL (NEGATIVE) Urine WBC (Auto) 16-25 (0-5) /HPF Urine RBC (Auto) NONE (0-2) /HPF U Epithel Cells (Auto) FEW (FEW) /HPF Urine Bacteria (Auto) PACKED (NEGATIVE) /HPF Urine Mucus (Auto) SLIGHT (NEGATIVE) /HPF Urine Culture Reflexed YES (NO) Urine Glucose NEGATIVE (NEGATIVE) mg/dL Digoxin (0.8-1.9) ng/mL Slides for Path Review - Progress Progress: improved Progress Note: Case discussed with Dr. Levi ER physician at [facility] who accepts transfer. Case discussed with Dr. Ha who feels that patient should be transferred due to recurrent spine fractures. In light of elevated troponin patient will also be transferred for this reason for cardiology evaluation. 03/28/21 11:19 03/28/21 12:47 Plan of care discussed with daughter. She advised transferring patient to [facility]. I did speak the patient's brick off bearer from [facility]. She called the transfer center to attempt to get our patients transfer to [facility] called back and stated they have no beds. I spoke to daughter a second time. She stated that transferring to either [facility] or [facility] would be up to our patient. I did speak to our patient. She stated that she prefers [facility]. 03/28/21 13:24 Daughter called and spoke to patient. They decided they want to try [facility]. Case discussed with Dr. Marsh hospitalist at [facility] who accepts transfer. 03/28/21 14:28 [facility] has no beds immediately available. We will transfer patient to [facility]. Daughter and patient updated. Discussed with Dr.: Dill (Case discussed with Dr. Ha covering Dr. Salazar. Dr. Ha agrees that patient should be transferred to [facility] for orthopedic consultation.) Counseled pt/family regarding: lab results, diagnosis, rad results - Departure Departure Disposition: Transfer Clinical Impression: T12 vertebral fracture, Osteopenia, Compression fracture of T8 vertebra, Thoracic kyphosis, Arthritis of spine, UTI (urinary tract infection), Elevated troponin, NSTEMI (non-ST elevated myocardial infarction), Coagulopathy, Elevated serum creatinine Condition: Stable Critical Care Time: No Referrals: WOLFGANG SALAZAR [Primary Care Provider] -
--- NOTE | 2021-03-28 09:57 | XRAY ---
Indication: Worsening pain. No known injury. Multiple contiguous axial images obtained through the thoracic spine. Sagittal and coronal reformatted images obtained. Comparison: March 24, 2021. T12 vertebral body now demonstrates superior endplate fracture with less than 25% height loss without spinal canal or foraminal stenosis. Stable osteopenia, minimal/mild multilevel degenerative endplate spurring, and remote T8 compression fracture. Sagittal and coronal reformatted images again demonstrate accentuated thoracic kyphosis. Visualized soft tissues again demonstrates bilateral discoid atelectasis/scarring, left renal cortical thinning/scarring with calcifications, small right upper renal cyst, and scattered vascular calcifications. Impression: 1. New T12 superior endplate fracture without spinal canal/foraminal stenosis. 2. Stable osteopenia, multilevel degenerative spondylosis, remote T8 compression fracture, and incidental soft tissue findings.
[2021-03-28 10:18] LABS: Absolute Neutrophil Ct (ANC) 9.72 (1.4-6.9); BASOPHIL % 0.1 % (0.0-0.4); Basophil (Absolute #) 0.01 (0-0.4); Eosinophil % 0.1 % (0.00-5.0); Eosinophil (Absolute #) 0.01 (0-0.5); Hematocrit 47.7 % (35-47); Hemoglobin 14.9 gm/dl (12.0-16.0); Lymphocyte (Absolute #) 0.43 (1.0-4.6); Lymphocytes % 4.1 % (24.0-44.0); Mean Cell Volume 94.1 fl (78-100); Mean Corpuscular Hemoglobin 29.4 pg (26-32); Mean Corpuscular Hgb Concent. 31.2 g/dl (32-36); Mean Platelet Volume 11.8 fl (7.5-11.0); Monocyte (Absolute #) 0.26 (0.0-1.3); Monocytes % 2.5 % (0.0-12.0); Neutrophil % 93.2 % (36.0-66.0); Platelet Count 207 K/mm3 (150-450); Red Blood Count 5.07 M/mm3 (4.1-5.4); Red Cell Distribution Width 14.9 % (11.5-14.0); White Blood Count 10.4 K/mm3 (4.0-10.5)
[2021-03-28 10:19] LABS: Appearance CLEAR (CLEAR); Bacteria PACKED /HPF (NEGATIVE); Bilirubin NEGATIVE (NEGATIVE); Blood NEGATIVE Ery/ul (0-5); Epithelial Cells FEW /HPF (FEW); Glucose NEGATIVE (NEGATIVE); Ketones SMALL (NEGATIVE); Leukocyte Esterase SMALL (NEGATIVE); Mucus SLIGHT /HPF (NEGATIVE); Nitrite POSITIVE (NEGATIVE); Protein,Urine Dip NEGATIVE (Negative); Specific Gravity 1.018 (1.005-1.025); Urobilinogen NEGATIVE mg/dL (0-1)
[2021-03-28 10:23] LABS: INR 3.54 (0.8-3.0); PROTIME 40.5 SECONDS (9.95-12.35)
[2021-03-28 10:25] LABS: PTT 45.6 SECONDS (25.3-37.0)
[2021-03-28 10:28] LABS: ALBUMIN 4.2 g/dL (3.5-5.0); ANION GAP 13.4 MEQ/L (5-15); BILIRUBIN,TOTAL 0.6 mg/dL (0.2-1.3); Calcium 9.4 mg/dL (8.4-10.2); Creatinine 1 1.25 mg/dL (0.52-1.04); EST GLOMERULAR FILTRATION RATE 43.3 ML/MIN; MAGNESIUM 2.5 mg/dL (1.6-2.3); Potassium 4.9 mmol/L (3.5-5.1); Total Protein 7.1 g/dL (6.3-8.2)
[2021-03-28] MEDS ORDERED: ROCEPHIN 1 Gm-D5w 50 ml Bag** 1 G/50 ML IVPB IV ONE (11:07)
[2021-03-28] MEDS: ROCEPHIN 1 Gm-D5w 50 ml Bag** 1 G/50 ML IVPB IV SCH (11:10)
[2021-03-28] MEDS: NITRO-BID 2% UD PACKETS TOP ONE (11:11)
[2021-03-28] MEDS ORDERED: NITRO-BID 2% UD PACKETS ONE (11:11)
[2021-03-28 13:25] VITALS: O2SAT 95
[2021-03-28 14:08] VITALS: BP 144/88; PULSE 101
[2021-03-28 14:17] LABS: Slide Review 1 YES
== END 2021-03-28 14:39 | disposition short-term general hospital (02) ==
LOC: ED 06:41
DX: S22.089A Unspecified fracture of T11-T12 vertebra, initial encounter for closed fracture (principal); W19.XXXA Unspecified fall, initial encounter; Y93.9 Activity, unspecified; Y92.9 Unspecified place or not applicable; M85.80 Other specified disorders of bone density and structure, unspecified site; S22.068D Other fracture of T7-T8 thoracic vertebra, subsequent encounter for fracture with routine healing; S27.9XXD Injury of unspecified intrathoracic organ, subsequent encounter; M40.204 Unspecified kyphosis, thoracic region; M46.96 Unspecified inflammatory spondylopathy, lumbar region; N39.0 Urinary tract infection, site not specified; R74.8 Abnormal levels of other serum enzymes; I21.3 ST elevation (STEMI) myocardial infarction of unspecified site; D68.9 Coagulation defect, unspecified; R79.82 Elevated C-reactive protein (CRP)
CPT/HCPCS: 36000; 36415; 72128; 80053; 80162; 81001; 83735; 84484; 85025; 85610; 85730; 87077; 87086; 87186; 93005; 94760; 96365; 96372; 99285; J0696; J1100; J2270; A9270-GY

== ENCOUNTER 2021-05-27 21:28 | Emergency (ER) | payer MEDICARE ==
--- NOTE | 2021-05-27 22:16 | ERPHSYRPT ---
- History of Present Illness Time Seen by Provider: 05/27/21 22:13 Source: patient, family Exam Limitations: no limitations Physician History: pt states that she has no symptoms and has not fallen recently. Family feels that she needs some assisted living or other arrangement. SHe is alert and oriented and not appearing delusional or with any unusal thoughts. No signs of trauma. Associated Symptoms: denies symptoms Allergies/Adverse Reactions: alendronate sodium [From Fosamax] Allergy (Verified 05/27/21 21:54) Sulfa (Sulfonamide Antibiotics) Allergy (Unverified 05/27/21 21:54) oxycodone [From Percocet] Adverse Reaction (Verified 05/27/21 21:54) Home Medications: Furosemide 20 mg [Lasix 20 mg] 20 mg PO DAILY 08/29/17 [History] Levothyroxine Sodium 88 mcg PO DAILY 08/29/17 [History] Metoprolol Tartrate 25 mg PO DAILY 08/29/17 [History] Warfarin Sodium [Coumadin] 3 mg PO DAILY 08/29/17 [History] clonazePAM [Klonopin] 0.5 mg PO BID 08/29/17 [History] Digoxin 0.125 mg Tablet [Lanoxin 0.125MG TABLET] 0.125 mg PO DAILY 02/22/20 [History] Potassium Chloride 10 Meq Tab* [Klor Con 10 MEQ] 10 meq PO BID 02/22/20 [History] Sacubitril/Valsartan [Entresto 24 mg-26 mg Tablet] 24 - 26 mg PO BID 02/22/20 [History] Hx Tetanus, Diphtheria Vaccination/Date Given: Yes Hx Influenza Vaccination/Date Given: Yes Hx Pneumococcal Vaccination/Date Given: Yes Travel Risk - Vaccine Status Have you recieved a Covid-19 vaccination: Yes 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 - Vaccination Dates Date of 2cond Vaccination (if applicable): JANUARY 2021 - Review of Systems Constitutional: No Fever, No Chills Eyes: No Symptoms Ears, Nose, & Throat: No Symptoms Respiratory: No Cough, No Dyspnea Cardiac: No Chest Pain, No Edema, No Syncope Abdominal/Gastrointestinal: No Abdominal Pain, No Nausea, No Vomiting, No Diarrhea Genitourinary Symptoms: No Dysuria Musculoskeletal: No Back Pain, No Neck Pain Skin: No Rash Neurological: No Dizziness, No Focal Weakness, No Sensory Changes Psychological: No Symptoms Endocrine: No Symptoms All Other Systems: Reviewed and Negative - Past Medical History Pertinent Past Medical History: Yes Neurological History: No Pertinent History ENT History: Cataracts, Glaucoma Cardiac History: Arrhythmia, Congestive Heart Failure Respiratory History: CHF Endocrine Medical History: Thyroid Cancer Musculoskeletal History: Osteoporosis GI Medical History: Other History: Kidney Cancer Psycho-Social History: Depression Female Reproductive Disorders: No Pertinent History Other Medical History: pancreatic cysts - Past Surgical History Past Surgical History: Yes Neuro Surgical History: No Pertinent History Cardiac: Valve Replacement Respiratory: No Pertinent History Gastrointestinal: No Pertinent History Genitourinary: Kidney Surgery Musculoskeletal: No Pertinent History Female Surgical History: Tubal Ligation - Social History Smoking Status: Never smoker Exposure to second hand smoke: No Drug Use: none Patient Lives Alone: No Significant Family History: no pertinent family hx - Nursing Vital Signs Nursing Vital Signs: Initial Vital Signs Temperature 98.2 F 05/27/21 21:54 Pulse Rate 77 05/27/21 21:54 Respiratory Rate 18 05/27/21 21:54 Blood Pressure 152/69 05/27/21 21:54 O2 Sat by Pulse Oximetry 98 05/27/21 21:54 Pain Scale Pain Intensity 0 - Physical Exam General Appearance: no apparent distress, alert Eye Exam: PERRL/EOMI, eyes nml inspection Ears, Nose, Throat Exam: normal ENT inspection, TMs normal, pharynx normal, moist mucous membranes Neck Exam: normal inspection, non-tender, supple, full range of motion Respiratory Exam: normal breath sounds, lungs clear, No respiratory distress Cardiovascular Exam: regular rate/rhythm, normal heart sounds, normal peripheral pulses Gastrointestinal/Abdomen Exam: soft, normal bowel sounds, No tenderness, No mass Back Exam: normal inspection, normal range of motion, No CVA tenderness, No vertebral tenderness Extremity Exam: normal inspection, normal range of motion, pelvis stable Neurologic Exam: alert, oriented x 3, cooperative, normal mood/affect, nml cerebellar function, nml station & gait, sensation nml, No motor deficits Skin Exam: normal color, warm, dry, No rash Lymphatic Exam: No adenopathy - Course Nursing assessment & vital signs reviewed: Yes Ordered Tests: Active Orders 24 hr Category Date Time Status CBC W DIFF Stat Lab 05/27/21 22:54 Completed CMP Stat Lab 05/27/21 22:54 Completed CULTURE,URINE Stat Lab 05/27/21 22:17 Received UA W/RFX UR CULTURE Stat Lab 05/27/21 22:17 Completed Lab/Rad Data: Laboratory Result Diagrams 05/27/21 22:54 05/27/21 22:54 Laboratory Results 05/27/21 05/27/21 05/27/21 Range/Units 22:54 22:54 22:17 WBC 6.0 (4.0-10.5) K/mm3 RBC 3.84 L (4.1-5.4) M/mm3 Hgb 11.0 L (12.0-16.0) gm/dl Hct 36.7 (35-47) % MCV 95.6 (78-100) fl MCH 28.6 (26-32) pg MCHC 30.0 L (32-36) g/dl RDW 16.4 H (11.5-14.0) % Plt Count 199 (150-450) K/mm3 MPV 11.2 H (7.5-11.0) fl Gran % 75.7 H (36.0-66.0) % Eos # (Auto) 0.25 (0-0.5) Absolute Lymphs (auto) 0.68 L (1.0-4.6) Absolute Monos (auto) 0.50 (0.0-1.3) Lymphocytes % 11.3 L (24.0-44.0) % Monocytes % 8.3 (0.0-12.0) % Eosinophils % 4.2 (0.00-5.0) % Basophils % 0.5 (0.0-0.4) % Absolute Granulocytes 4.55 (1.4-6.9) Basophils # 0.03 (0-0.4) Sodium 133 L (137-145) mmol/L Potassium 5.0 (3.5-5.1) mmol/L Chloride 103 (98-107) mmol/L Carbon Dioxide 28 (22-30) mmol/L Anion Gap 6.9 (5-15) MEQ/L BUN 25 H (7-17) mg/dL Creatinine 1.42 H (0.52-1.04) mg/dL Estimated GFR 37.4 ML/MIN Glucose 88 (74-106) mg/dL Calcium 9.4 (8.4-10.2) mg/dL Total Bilirubin 0.40 (0.2-1.3) mg/dL AST 25 (14-36) U/L ALT 9 (0-35) U/L Alkaline Phosphatase 107 (38-126) U/L Serum Total Protein 6.1 L (6.3-8.2) g/dL Albumin 3.7 (3.5-5.0) g/dL Urine Color YELLOW (YELLOW) Urine Appearance CLOUDY (CLEAR) Urine pH 5.0 (5-6) Ur Specific Jewell 1.023 (1.005-1.025) Urine Protein 100 (Negative) Urine Ketones NEGATIVE (NEGATIVE) Urine Blood LARGE (0-5) Deniz/ul Urine Nitrite NEGATIVE (NEGATIVE) Urine Bilirubin NEGATIVE (NEGATIVE) Urine Urobilinogen NEGATIVE (0-1) mg/dL Ur Leukocyte Esterase SMALL (NEGATIVE) Urine WBC (Auto) 51-100 (0-5) /HPF Urine RBC (Auto) NONE SEEN (0-2) /HPF U Hyaline Cast (Auto) 6-10 (0-2) /LPF U Epithel Cells (Auto) RARE (FEW) /HPF Urine Bacteria (Auto) NONE (NEGATIVE) /HPF Calcium Oxalate Crystal 51-99 (NEGATIVE) /HPF Urine Mucus (Auto) SLIGHT (NEGATIVE) /HPF Urine Culture Reflexed YES (NO) Urine Glucose NEGATIVE (NEGATIVE) mg/dL - Progress Progress: improved, re-examined Progress Note: 05/27/21 23:49 family and pt agree to workout assisted living /[facility] of pts choice within her resources and to return if any problems meantime. Counseled pt/family regarding: lab results, diagnosis, need for follow-up - Departure Departure Disposition: Home Clinical Impression: UTI (urinary tract infection) Condition: Good Critical Care Time: No Referrals: BRITTANY GONZALEZ [Primary Care Provider] - Instructions: Preventing Falls, Urinary Tract Infection, Adult (DC) Additional Instructions: followup with your this week and for urinary infection. and to discuss living assist placement. return meantime if any concerns. Prescriptions: Cephalexin Mh 500 mg [Keflex 500 mg] 500 mg PO TID #30 capsule
[2021-05-27 22:58] LABS: Absolute Neutrophil Ct (ANC) 4.55 (1.4-6.9); BASOPHIL % 0.5 % (0.0-0.4); Basophil (Absolute #) 0.03 (0-0.4); Eosinophil % 4.2 % (0.00-5.0); Eosinophil (Absolute #) 0.25 (0-0.5); Hematocrit 36.7 % (35-47); Lymphocyte (Absolute #) 0.68 (1.0-4.6); Lymphocytes % 11.3 % (24.0-44.0); Mean Cell Volume 95.6 fl (78-100); Mean Corpuscular Hemoglobin 28.6 pg (26-32); Mean Platelet Volume 11.2 fl (7.5-11.0); Monocytes % 8.3 % (0.0-12.0); Neutrophil % 75.7 % (36.0-66.0); Platelet Count 199 K/mm3 (150-450); Red Blood Count 3.84 M/mm3 (4.1-5.4); Red Cell Distribution Width 16.4 % (11.5-14.0)
[2021-05-27 23:13] LABS: ALBUMIN 3.7 g/dL (3.5-5.0); ANION GAP 6.9 MEQ/L (5-15); BILIRUBIN,TOTAL 0.4 mg/dL (0.2-1.3); Calcium 9.4 mg/dL (8.4-10.2); Creatinine 1 1.42 mg/dL (0.52-1.04); EST GLOMERULAR FILTRATION RATE 37.4 ML/MIN; Total Protein 6.1 g/dL (6.3-8.2)
[2021-05-27 23:26] LABS: Appearance CLOUDY (CLEAR); Bilirubin NEGATIVE (NEGATIVE); Blood LARGE Ery/ul (0-5); Epithelial Cells RARE /HPF (FEW); Glucose NEGATIVE (NEGATIVE); Ketones NEGATIVE (NEGATIVE); Leukocyte Esterase SMALL (NEGATIVE); Mucus SLIGHT /HPF (NEGATIVE); Nitrite NEGATIVE (NEGATIVE); Protein,Urine Dip 100 (Negative); Specific Gravity 1.023 (1.005-1.025); Urobilinogen NEGATIVE mg/dL (0-1); WBC 51-100 /HPF (0-5)
[2021-05-27 23:29] LABS: RBC NONE SEEN /HPF (0-2)
[2021-05-27] MEDS ORDERED: KEFLEX 500 MG PO ONE (23:54)
[2021-05-28] MEDS ORDERED: KEFLEX 500 MG ONE (00:07)
[2021-05-28 00:17] VITALS: BP 129/72; PULSE 72; O2SAT 98
== END 2021-05-28 00:17 | disposition home or self-care (01) ==
LOC: ED 21:28
DX: N39.0 Urinary tract infection, site not specified (principal); Z79.899 Other long term (current) drug therapy; Z79.01 Long term (current) use of anticoagulants
CPT/HCPCS: 36415; 80053; 81001; 85025; 87086; 99283; A9270-GY